=== PATIENT | female | born 1970 | race Caucasian/White ===

== ENCOUNTER 2020-07-15 13:46 | Inpatient (IN) | payer OTHER ==
[~2020-07-15] VITALS: Ht 170.2 cm; Wt 72.1 kg
[~2020-07-15 13:46] MED LIST: BUPRENORPHIN-N1 EACH SL; CATAPRES 0.1MG0.1 MG PO; FLUOXETINE HCL40 MG PO; GABAPENTIN800 MG PO; IBU800 MG PO; LISINOPRIL10 MG PO; ONDANSETRON ODT4 MG PO; QUETIAPINE FUM100 MG PO
[2020-07-15 15:15] LABS: HEMOGLOBIN 14.1 gm/dl (12.3-15.3); RED BLOOD COUNT 4.09 M/UL (4.00-5.10); WHITE BLOOD COUNT 12.1 K/UL (4.5-11.0)
[2020-07-15 15:42] LABS: BUN/CREATININE RATIO 7 (0-10)
[2020-07-15] MEDS ORDERED: SUBOXONE 8 MG-1 EACH SL (21:18)
[2020-07-16 03:17] LABS: WHITE BLOOD COUNT 10.3 K/UL (4.5-11.0)
[2020-07-16 03:23] LABS: HEMOGLOBIN 11.5 gm/dl (12.3-15.3); RED BLOOD COUNT 3.44 M/UL (4.00-5.10)
[2020-07-16] MEDS ORDERED: OMNICEF 300 MG300 MG PO (12:02)
== END 2020-07-16 15:20 | disposition home or self-care (01) | DRG 682 ==
LOC: ER1 13:46 → CDU 19:40 → PROG CARE 23:52
PROVIDERS: Student in an Organized Health Care Education/Training Program; ADMIT Family Medicine
DX: N17.9 Acute kidney failure, unspecified (principal); R57.1 Hypovolemic shock; N30.00 Acute cystitis without hematuria; I95.2 Hypotension due to drugs; T46.5X5A Adverse effect of other antihypertensive drugs, initial encounter; Z20.822 Contact with and (suspected) exposure to COVID-19; F19.10 Other psychoactive substance abuse, uncomplicated; G89.4 Chronic pain syndrome; R51.9 Headache, unspecified; K27.9 Peptic ulcer, site unspecified, unspecified as acute or chronic, without hemorrhage or perforation; F17.210 Nicotine dependence, cigarettes, uncomplicated
CPT/HCPCS: 0240U; 36415; 36600; 71045; 80053; 80307; 81001; 82533; 82550; 82553; 82803; 83605; 83735; 83880; 84100; 84484; 84702; 85025; 85610; 86140; 87040; 87081; 87086; 93005; 96365; 96366; 96368; 96372; 96375; 96376; 99285; C9113; G0378; G0480; J0692; J0696; J1644; J2020; J2405; J3370; J7030; J7120

== ENCOUNTER → 2020-07-23 | Outpatient (CLI) | payer OTHER ==
[~2020-07-23] MED LIST changes: +OMNICEF 300 MG300 MG PO; +SUBOXONE 8 MG-1 EACH SL
[2020-07-23 12:20] LABS: BUN/CREATININE RATIO 16 (0-10)
== END ==
LOC: LAB 11:29
PROVIDERS: Family Medicine
DX: R73.09 Other abnormal glucose (principal)
CPT/HCPCS: 36415; 80048